=== PATIENT | female | born 1955 | race Caucasian/White ===

== ENCOUNTER 2016-09-21 07:39 | Emergency (ER) | payer OTHER ==
[~2016-09-21] VITALS: Ht 157.5 cm; Wt 62.6 kg
[~2016-09-21 07:39] MED LIST: LORA1TAB PO; MELA1TAB7 PO; RALO60TA PO
[2016-09-21] MEDS ORDERED: SODIUM CHLORIDE 0.9% 1,000 ML IV ONE (07:56)
[2016-09-21] MEDS ORDERED: SODIUM CHLORIDE 0.9% 1,000ML IVBOLUS ONE (08:00)
[2016-09-21] MEDS ORDERED: THIAMINE 100 MG in SODIUM CHLORIDE 0.9% 50 ML IVPB ONE (08:00)
[2016-09-21] MEDS ORDERED: FAMOTIDINE 20 MG/2 ML ONE (08:28)
[2016-09-21] MEDS ORDERED: ONDANSETRON 2MG/ML, 2ML ONE (08:28)
[2016-09-21] MEDS ORDERED: FAMOTIDINE 20 MG/2 ML IVP ONE (08:30)
[2016-09-21] MEDS ORDERED: ONDANSETRON 2MG/ML, 2ML IVPush ONE (08:30)
[2016-09-21 08:54] LABS: ASPARTATE AMINO TRANSFERASE 38 U/L (15-37); BLOOD UREA NITROGEN 11 mg/dL (7-18)
[2016-09-21 09:40] LABS: PATH.CAST-FLAG NOT PRESENT; SPERM-FLAG NOT PRESENT; SRC-FLAG NOT PRESENT; XTAL-FLAG NOT PRESENT; YLC-FLAG NOT PRESENT
[2016-09-21 10:44] VITALS: BP 142/78
== END 2016-09-21 10:48 | disposition home or self-care (01) ==
LOC: ED 10:42
DX: K29.20 Alcoholic gastritis without bleeding (principal); F10.129 Alcohol abuse with intoxication, unspecified; K21.9 Gastro-esophageal reflux disease without esophagitis; I10 Essential (primary) hypertension
CPT/HCPCS: 36415; 80053; 81001; 83690; 83735; 85025; 85610; 85730; 96365; 96366; 96375; 99285; J2405; J3411; J7030; S0028

== ENCOUNTER → 2016-11-09 | Outpatient (CLI) | payer OTHER ==
[~2016-11-09] MED LIST changes: +OMNIPAQUE 350 MG/ML, 100ML BOTTLE ONE
== END | disposition home or self-care (01) ==
LOC: RAD 13:14
PROVIDERS: ATTEND Specialist
DX: C54.1 Malignant neoplasm of endometrium (principal); C54.9 Malignant neoplasm of corpus uteri, unspecified; N85.8 Other specified noninflammatory disorders of uterus
CPT/HCPCS: 71260; 74177; J1642; Q9967

== ENCOUNTER 2017-08-25 07:48 | Emergency (ER) | payer OTHER ==
[~2017-08-25] VITALS: Ht 157.5 cm; Wt 63.8 kg
[~2017-08-25 07:48] MED LIST changes: -OMNIPAQUE 350 MG/ML, 100ML BOTTLE ONE
[2017-08-25] MEDS ORDERED: OXYC15TA75 PO (08:36)
[2017-08-25] MEDS ORDERED: CELE50CA PO (08:36)
[2017-08-25] MEDS ORDERED: LISI-167 PO (08:36)
[2017-08-25] MEDS ORDERED: AMLO2.5T2 PO (08:36)
[2017-08-25] MEDS ORDERED: FAMOTIDINE 20 MG/2 ML ONE (09:10)
[2017-08-25] MEDS ORDERED: SODIUM CHLORIDE FLUSH 10ML SYR IVF ONE (09:30)
[2017-08-25] MEDS ORDERED: SODIUM CHLORIDE 0.9% 1,000ML IVBOLUS ONE (09:30)
[2017-08-25] MEDS ORDERED: FAMOTIDINE 20 MG/2 ML IVP ONE (09:30)
[2017-08-25 09:33] LABS: BASOPHILS # (AUTO) 0.01 x10^3/uL (0-0.1); BASOPHILS % (AUTO) 0 % (0-1); EOSINOPHILS % (AUTO) 0 % (1-7); LYMPHOCYTES # (AUTO) 1.33 x10^3/uL (1-3.4); LYMPHOCYTES % (AUTO) 21 % (22-44); MD NO; MEAN CORPUSCULAR HEMOGLOBIN 34.1 pg (27.0-34.8); MEAN CORPUSCULAR HGB CONC 34.8 g/dL (32.4-35.8); MEAN CORPUSCULAR VOLUME 98.1 fL (80-100); MEAN PLATELET VOLUME 8.1 fL (7.4-10.4); MONOCYTES # (AUTO) 0.34 x10^3/uL (0.2-0.8); MONOCYTES % (AUTO) 5 % (2-9); NEUTROPHILS # (AUTO) 4.75 x10^3/uL (1.8-6.8); NEUTROPHILS % (AUTO) 74 % (42-75); PLATELET COUNT 184 x10^3/uL (130-400); RED BLOOD COUNT 3.98 x10^6/uL (3.82-5.3); RED CELL DISTRIBUTION WIDTH 13.2 % (9.6-15.2)
[2017-08-25 09:37] LABS: INTERNATIONAL NORMALIZED RATIO 1.07 (0.93-1.1); PROTHROMBIN TIME 11.1 Seconds (9.6-11.5)
[2017-08-25 09:46] LABS: ANION GAP 9 mmol/L (5-15); CALCIUM 8.3 mg/dL (8.5-10.1); CHLORIDE 105 mmol/L (98-107); CREATININE 0.69 mg/dL (0.55-1.02)
[2017-08-25 09:47] LABS: ALANINE AMINOTRANSFERASE 32 U/L (12-78); ALBUMIN 3.4 g/dL (3.4-5.0)
[2017-08-25 09:50] LABS: ALKALINE PHOSPHATASE 95 U/L (45-117); BILIRUBIN,TOTAL 0.5 mg/dL (0.2-1.0); TOTAL PROTEIN 7.1 g/dL (6.4-8.2)
[2017-08-25 10:38] LABS: MICROSCOPIC NOT IND
[2017-08-25 10:39] LABS: CULTURE INDICATED? NO
[2017-08-25 11:33] VITALS: BP 106/66
== END 2017-08-25 11:36 | disposition home or self-care (01) ==
LOC: ED 09:41
DX: K64.4 Residual hemorrhoidal skin tags (principal); R11.10 Vomiting, unspecified; E86.0 Dehydration; R19.09 Other intra-abdominal and pelvic swelling, mass and lump; I10 Essential (primary) hypertension; K21.9 Gastro-esophageal reflux disease without esophagitis
CPT/HCPCS: 36415; 80053; 81003; 83690; 83880; 85025; 85610; 96361; 96374; 99284; J7030; S0028

== ENCOUNTER → 2018-01-16 | Outpatient (CLI) | payer OTHER ==
[~2018-01-16] MED LIST changes: +AMLO2.5T2 PO; +CELE50CA PO; +LISI-167 PO; +OMNIPAQUE 350 MG/ML, 100ML BOTTLE ONE; +OXYC15TA75 PO
== END | disposition home or self-care (01) ==
LOC: CFH 08:46
PROVIDERS: ATTEND Specialist
DX: K57.90 Diverticulosis of intestine, part unspecified, without perforation or abscess without bleeding (principal); R19.00 Intra-abdominal and pelvic swelling, mass and lump, unspecified site; C54.8 Malignant neoplasm of overlapping sites of corpus uteri
CPT/HCPCS: 74177; Q9967

== ENCOUNTER 2019-05-02 11:00 | Inpatient (IN) | payer OTHER ==
[~2019-05-02] VITALS: Ht 157.5 cm; Wt 67.4 kg
[~2019-05-02 11:00] MED LIST changes: -OMNIPAQUE 350 MG/ML, 100ML BOTTLE ONE; +OXYC-293 PO
[2019-05-02 11:17] LABS: MICROSCOPIC NOT IND
[2019-05-02 11:20] LABS: CULTURE INDICATED? NO
[2019-05-02 11:28] LABS: BASOPHILS # (AUTO) 0.01 x10^3/uL (0-0.1); BASOPHILS % (AUTO) 0 % (0-1); EOSINOPHILS # (AUTO) 0.11 x10^3/uL (0-0.4); EOSINOPHILS % (AUTO) 2 % (1-7); LYMPHOCYTES % (AUTO) 26 % (22-44); MD NO; MEAN CORPUSCULAR HEMOGLOBIN 34.1 pg (27.0-34.8); MEAN CORPUSCULAR HGB CONC 33.4 g/dL (32.4-35.8); MEAN CORPUSCULAR VOLUME 101.8 fL (80-100); MONOCYTES # (AUTO) 0.62 x10^3/uL (0.2-0.8); MONOCYTES % (AUTO) 11 % (2-9); NEUTROPHILS # (AUTO) 3.59 x10^3/uL (1.8-6.8); NEUTROPHILS % (AUTO) 62 % (42-75); PLATELET COUNT 253 x10^3/uL (130-400); RED BLOOD COUNT 4.04 x10^6/uL (3.82-5.3); RED CELL DISTRIBUTION WIDTH 12.5 % (9.6-15.2)
[2019-05-02 11:38] LABS: PROTHROMBIN TIME 10.5 Seconds (9.6-11.5)
[2019-05-02 11:41] LABS: ALBUMIN 3.6 g/dL (3.4-5.0); ANION GAP 7 mmol/L (5-15); CALCIUM 8.8 mg/dL (8.5-10.1); CHLORIDE 106 mmol/L (98-107)
[2019-05-02 11:47] LABS: ALANINE AMINOTRANSFERASE 25 U/L (12-78); ALKALINE PHOSPHATASE 103 U/L (45-117); BILIRUBIN,TOTAL 0.5 mg/dL (0.2-1.0); CREATININE 0.92 mg/dL (0.55-1.02); TOTAL PROTEIN 7.4 g/dL (6.4-8.2)
[2019-05-05] MEDS ORDERED: CEFOTETAN PMX 2GM/50ML 50 ML IVPB ONE (11:00)
[2019-05-05] MEDS ORDERED: LACTATED RINGERS 1,000 ML IV SCH (11:08)
[2019-05-05] MEDS ORDERED: LIDOCAINE-MPF 1%, 2ML INFIL ONE (11:30)
[2019-05-05] MEDS ORDERED: MIDAZOLAM 1 MG/ML, 2ML ONE (12:24)
[2019-05-05] MEDS ORDERED: FENTANYL PF 250 MCG/5ML ONE (12:24)
[2019-05-05] MEDS ORDERED: ROCURONIUM 10MG/ML,5ML ONE (12:25)
[2019-05-05] MEDS ORDERED: DEXAMETHASONE 4 MG/ML, 1ML ONE (12:25)
[2019-05-05] MEDS ORDERED: SUCCINYLCHOLINE 20 MG/ML, 10ML ONE (12:25)
[2019-05-05] MEDS ORDERED: PROPOFOL 10 MG/ML, 20ML ONE (12:25)
[2019-05-05] MEDS ORDERED: PROMETHAZINE 12.5 MG SUPP PR PRN (13:30)
[2019-05-05] MEDS ORDERED: DIAZEPAM 5 MG/ML, 2ML IVPush PRN (13:30)
[2019-05-05] MEDS ORDERED: MIDAZOLAM 1 MG/ML, 2ML IV PRN (13:30)
[2019-05-05] MEDS ORDERED: ACETAMINOPHEN 325 MG TABLET PO PRN (13:30)
[2019-05-05] MEDS ORDERED: HALOPERIDOL 5 MG/ML IV PRN (13:30)
[2019-05-05] MEDS ORDERED: OXYcodone 5 MG/5 ML ORAL.SOL UDC PO PRN (13:30)
[2019-05-05] MEDS ORDERED: MEPERIDINE/PF 25MG/ML,1ML IVPush PRN (13:30)
[2019-05-05] MEDS ORDERED: HYDROmorphone 2 MG/ML, 1ML IVPush PRN (13:30)
[2019-05-05] MEDS ORDERED: PROMETHAZINE 25 MG/ML, 1ML IV PRN (13:30)
[2019-05-05] MEDS ORDERED: hydrALAzine 20 MG/ML, 1ML IV PRN (13:30)
[2019-05-05] MEDS ORDERED: ONDANSETRON 2MG/ML, 2ML IV PRN (13:30)
[2019-05-05] MEDS ORDERED: EPHEDRINE 50 MG/ML, 1ML IVPush PRN (13:30)
[2019-05-05] MEDS ORDERED: ONDANSETRON ODT 8 MG PO PRN (13:30)
[2019-05-05] MEDS ORDERED: ALBUTEROL SULFATE 2.5 MG/3 ML NPPB PRN (13:30)
[2019-05-05] MEDS ORDERED: LABETALOL 5MG/ML, 20ML IV PRN (13:30)
[2019-05-05] MEDS ORDERED: INDIGO CARMINE 0.8%, 5ML ONE (13:35)
[2019-05-05] MEDS ORDERED: FENTANYL PF 100 MCG/2ML ONE ×2 (13:36→15:01)
[2019-05-05] MEDS ORDERED: SUGAMMADEX 200 MG/2 ML IVPush ONE (14:13)
[2019-05-05] MEDS ORDERED: ONDANSETRON 2MG/ML, 2ML ONE ×2 (14:13)
[2019-05-05] MEDS ORDERED: KETOROLAC 30 MG/1 ML IVPush PRN (15:00)
[2019-05-05] MEDS: FENTANYL PF 100 MCG/2ML IV PRN ×2 (15:00→15:20)
[2019-05-05] MEDS ORDERED: OXYcodone 5 MG/5 ML ORAL.SOL UDC ONE (15:01)
[2019-05-05] MEDS ORDERED: KETOROLAC 30 MG/1 ML ONE (15:02)
[2019-05-05] MEDS ORDERED: HYDROmorphone 1 MG/ML, 1ML VIAL ONE (15:46)
[2019-05-05] MEDS: ONDANSETRON 2MG/ML, 2ML IVPush PRN (17:12)
[2019-05-05] MEDS: OXYcodone/APAP 5/325MG TABLET PO PRN ×2 (17:13→21:17)
[2019-05-05] MEDS: D5%-0.45NACL+KCL 20MEQ 1,000 ML IV SCH (17:13)
[2019-05-05 18:06] LABS: ANION GAP 9 mmol/L (5-15); CALCIUM 8.1 mg/dL (8.5-10.1); CHLORIDE 108 mmol/L (98-107); CREATININE 0.89 mg/dL (0.55-1.02)
[2019-05-05] MEDS: morphine SULFATE 10 MG/ML, 1ML IVPush PRN ×2 (18:53→23:54)
[2019-05-05 19:16] VITALS: BP 135/84
[2019-05-05 23:33] VITALS: BP 149/86
[2019-05-06] MEDS: OXYcodone/APAP 5/325MG TABLET PO PRN ×5 (01:22→21:00)
[2019-05-06] MEDS: ONDANSETRON 2MG/ML, 2ML IVPush PRN (01:25)
[2019-05-06] MEDS: D5%-0.45NACL+KCL 20MEQ 1,000 ML IV SCH ×3 (01:42→19:00)
[2019-05-06 03:46] VITALS: BP 116/79
[2019-05-06 04:10] LABS: BASOPHILS % (AUTO) 0 % (0-1); EOSINOPHILS # (AUTO) 0.13 x10^3/uL (0-0.4); EOSINOPHILS % (AUTO) 2 % (1-7); LYMPHOCYTES # (AUTO) 0.51 x10^3/uL (1-3.4); LYMPHOCYTES % (AUTO) 6 % (22-44); MD NO; MEAN CORPUSCULAR HEMOGLOBIN 34.2 pg (27.0-34.8); MEAN CORPUSCULAR HGB CONC 33.6 g/dL (32.4-35.8); MEAN CORPUSCULAR VOLUME 101.9 fL (80-100); MEAN PLATELET VOLUME 8.5 fL (7.4-10.4); MONOCYTES # (AUTO) 0.92 x10^3/uL (0.2-0.8); MONOCYTES % (AUTO) 10 % (2-9); NEUTROPHILS % (AUTO) 83 % (42-75); PLATELET COUNT 242 x10^3/uL (130-400); RED BLOOD COUNT 3.44 x10^6/uL (3.82-5.3); RED CELL DISTRIBUTION WIDTH 12.7 % (9.6-15.2)
[2019-05-06 06:55] VITALS: BP 125/72
[2019-05-06] MEDS: morphine SULFATE 10 MG/ML, 1ML IVPush PRN (08:55)
[2019-05-06 12:51] VITALS: BP 124/75
[2019-05-06] MEDS: OMEPRAZOLE 20 MG CAPSULE.DR PO SCH (16:31)
[2019-05-06 19:12] VITALS: BP 122/74
[2019-05-06] MEDS: LORazepam 1MG TABLET PO SCH (22:30)
[2019-05-07 01:58] VITALS: BP 124/76
[2019-05-07] MEDS: D5%-0.45NACL+KCL 20MEQ 1,000 ML IV SCH ×3 (03:00→19:00)
[2019-05-07] MEDS: OXYcodone/APAP 5/325MG TABLET PO PRN ×3 (03:04→12:23)
[2019-05-07] MEDS: OMEPRAZOLE 20 MG CAPSULE.DR PO SCH ×2 (06:14→16:10)
[2019-05-07 07:11] VITALS: BP 110/70
[2019-05-07] MEDS: ONDANSETRON 2MG/ML, 2ML IVPush PRN (13:17)
[2019-05-07 14:00] VITALS: BP 124/66
[2019-05-07] MEDS: morphine SULFATE 10 MG/ML, 1ML IVPush PRN (19:19)
[2019-05-07 19:24] VITALS: BP 137/84
[2019-05-07] MEDS: LORazepam 1MG TABLET PO SCH (21:00)
[2019-05-08 01:05] VITALS: BP 157/79
[2019-05-08] MEDS: morphine SULFATE 10 MG/ML, 1ML IVPush PRN ×2 (01:12→14:15)
[2019-05-08] MEDS: D5%-0.45NACL+KCL 20MEQ 1,000 ML IV SCH ×4 (02:42→21:17)
[2019-05-08] MEDS: OMEPRAZOLE 20 MG CAPSULE.DR PO SCH ×2 (05:28→17:00)
[2019-05-08] MEDS: OXYcodone/APAP 5/325MG TABLET PO PRN ×3 (06:27→18:30)
[2019-05-08 06:49] VITALS: BP 135/81
[2019-05-08 10:42] LABS: MEAN CORPUSCULAR HEMOGLOBIN 34.6 pg (27.0-34.8); MEAN CORPUSCULAR HGB CONC 33.9 g/dL (32.4-35.8); MEAN CORPUSCULAR VOLUME 102.2 fL (80-100); MEAN PLATELET VOLUME 8.4 fL (7.4-10.4); PLATELET COUNT 232 x10^3/uL (130-400); RED BLOOD COUNT 3.04 x10^6/uL (3.82-5.3); RED CELL DISTRIBUTION WIDTH 12.4 % (9.6-15.2)
[2019-05-08 10:51] LABS: ANION GAP 6 mmol/L (5-15); CALCIUM 8.4 mg/dL (8.5-10.1); CHLORIDE 103 mmol/L (98-107)
[2019-05-08 10:52] LABS: CREATININE 0.57 mg/dL (0.55-1.02)
[2019-05-08 10:58] LABS: BASOPHILS # (AUTO) 0.01 x10^3/uL (0-0.1); BASOPHILS % (AUTO) 0 % (0-1); EOSINOPHILS # (AUTO) 0.02 x10^3/uL (0-0.4); EOSINOPHILS % (AUTO) 0 % (1-7); LYMPHOCYTES # (AUTO) 0.88 x10^3/uL (1-3.4); LYMPHOCYTES % (AUTO) 6 % (22-44); MD SCAN; MONOCYTES # (AUTO) 0.85 x10^3/uL (0.2-0.8); MONOCYTES % (AUTO) 6 % (2-9); NEUTROPHILS # (AUTO) 12.93 x10^3/uL (1.8-6.8); NEUTROPHILS % (AUTO) 88 % (42-75)
[2019-05-08 13:33] VITALS: BP 115/76
[2019-05-08 18:51] VITALS: BP 137/82
[2019-05-08] MEDS ORDERED: METOCLOPRAMIDE 10MG TABLET PO PRN (21:00)
[2019-05-08] MEDS: LORazepam 1MG TABLET PO SCH (21:17)
[2019-05-08] MEDS: METOCLOPRAMIDE 10MG TABLET PO SCH (21:17)
[2019-05-08 23:52] LABS: MICROSCOPIC AUTO
[2019-05-08 23:53] LABS: CULTURE INDICATED? YES
[2019-05-09 01:05] VITALS: BP 142/87
[2019-05-09] MEDS: METOCLOPRAMIDE 10MG TABLET PO SCH ×3 (02:16→14:35)
[2019-05-09] MEDS: OMEPRAZOLE 20 MG CAPSULE.DR PO SCH (04:25)
[2019-05-09] MEDS: OXYcodone/APAP 5/325MG TABLET PO PRN ×4 (04:25→15:28)
[2019-05-09 05:06] LABS: MEAN CORPUSCULAR HEMOGLOBIN 33.9 pg (27.0-34.8); MEAN CORPUSCULAR HGB CONC 33.7 g/dL (32.4-35.8); MEAN CORPUSCULAR VOLUME 100.6 fL (80-100); PLATELET COUNT 274 x10^3/uL (130-400); RED BLOOD COUNT 3.07 x10^6/uL (3.82-5.3); RED CELL DISTRIBUTION WIDTH 12.4 % (9.6-15.2)
[2019-05-09 05:13] LABS: ANION GAP 9 mmol/L (5-15); CALCIUM 8.5 mg/dL (8.5-10.1); CHLORIDE 101 mmol/L (98-107); CREATININE 0.53 mg/dL (0.55-1.02)
[2019-05-09 05:55] LABS: BASOPHILS % (AUTO) 0 % (0-1); EOSINOPHILS # (AUTO) 0.06 x10^3/uL (0-0.4); EOSINOPHILS % (AUTO) 1 % (1-7); LYMPHOCYTES # (AUTO) 0.71 x10^3/uL (1-3.4); LYMPHOCYTES % (AUTO) 6 % (22-44); MD SCAN; MONOCYTES # (AUTO) 0.82 x10^3/uL (0.2-0.8); MONOCYTES % (AUTO) 7 % (2-9); NEUTROPHILS # (AUTO) 11.05 x10^3/uL (1.8-6.8); NEUTROPHILS % (AUTO) 87 % (42-75)
[2019-05-09 07:16] VITALS: BP 143/82
[2019-05-09] MEDS ORDERED: CIPROFLOXACIN 500 MG TABLET PO SCH (09:00)
[2019-05-09] MEDS ORDERED: CALCIUM CARBONATE 500 MG TAB.CHEW ONE (10:13)
[2019-05-09] MEDS ORDERED: CALCIUM CARBONATE 500 MG TAB.CHEW PO SCH (11:00)
[2019-05-09 12:35] VITALS: BP 121/72
[2019-05-09] MEDS ORDERED: ONDA4TAB7 PO (15:19)
[2019-05-09] MEDS ORDERED: CIPR500T87 PO (15:21)
[2019-05-09] MEDS ORDERED: D5%-0.45NACL+KCL 20MEQ 1,000 ML IV SCH (16:30)
== END 2019-05-09 16:08 | disposition home or self-care (01) | DRG 336 ==
LOC: EDSTATUS 05-05 09:45 → ORIP 05-05 10:03 → 4NE 05-05 16:15 → 4NW 05-07 16:41 → DCLOUNGE 05-09 15:44
PROVIDERS: ADMIT Specialist; ATTEND Specialist
PROC: 04B Lower Arteries, Excision (ICD-10-PCS; 2019-05-05)
PROC: 0TQD8ZZ Repair Urethra, Via Natural or Artificial Opening Endoscopic (ICD-10-PCS; 2019-05-05)
PROC: 0T778DZ Dilation of Left Ureter with Intraluminal Device, Via Natural or Artificial Opening Endoscopic (ICD-10-PCS; 2019-05-05)
PROC: 0DNW0ZZ Release Peritoneum, Open Approach (ICD-10-PCS; principal; 2019-05-05 10:45)
DX: R19.00 Intra-abdominal and pelvic swelling, mass and lump, unspecified site (principal); C49.9 Malignant neoplasm of connective and soft tissue, unspecified; N39.0 Urinary tract infection, site not specified; K56.7 Ileus, unspecified; C78.7 Secondary malignant neoplasm of liver and intrahepatic bile duct; S37.19XA Other injury of ureter, initial encounter; F41.9 Anxiety disorder, unspecified; K66.0 Peritoneal adhesions (postprocedural) (postinfection); D64.9 Anemia, unspecified; X58.XXXA Exposure to other specified factors, initial encounter; Y93.89 Activity, other specified; Y92.89 Other specified places as the place of occurrence of the external cause; Y99.8 Other external cause status; Z79.899 Other long term (current) drug therapy; Z88.6 Allergy status to analgesic agent
CPT/HCPCS: 36415; 74018; J3490; 71046; 80048; 80053; 81001; 81003; 82378; 85025; 85610; 85730; 86304; 86850; 86900; 86923; 87086; 88305; 88307; 88341; 88342; 93005; C1729; G0378; J1100; J1170; J1885; J2250; J2405; J2704; J3010; C1765; C1769; C2617; J0330; J2270; J3480; J7120

== ENCOUNTER 2019-06-17 07:29 | Day surgery (SDC) | payer OTHER ==
[~2019-06-17] VITALS: Ht 157.5 cm; Wt 65.3 kg
[~2019-06-17 07:29] MED LIST changes: +CIPR500T87 PO; +ONDA4TAB7 PO
[2019-06-17] MEDS ORDERED: ACETAMINOPHEN 500 MG TABLET PO ONE (08:00)
[2019-06-17] MEDS ORDERED: GLUC500T11 PO (08:18)
[2019-06-17] MEDS ORDERED: VENL37.57 PO (08:18)
[2019-06-17] MEDS ORDERED: VITA200C33 PO (08:18)
[2019-06-17 08:23] VITALS: BP 136/84
[2019-06-17] MEDS ORDERED: LACTATED RINGERS 1,000 ML IV SCH (09:00)
[2019-06-17] MEDS ORDERED: CEFOTETAN PMX 2GM/50ML 50 ML IV ONE (09:00)
[2019-06-17] MEDS ORDERED: MEPERIDINE/PF 25MG/ML,1ML IVPush PRN (09:30)
[2019-06-17] MEDS ORDERED: OXYcodone 5 MG/5 ML ORAL.SOL UDC PO PRN (09:30)
[2019-06-17] MEDS ORDERED: LABETALOL 5MG/ML, 20ML IV PRN (09:30)
[2019-06-17] MEDS ORDERED: HYDROmorphone 2 MG/ML, 1ML IVPush PRN (09:30)
[2019-06-17] MEDS ORDERED: hydrALAzine 20 MG/ML, 1ML IV PRN (09:30)
[2019-06-17] MEDS ORDERED: EPHEDRINE 50 MG/ML, 1ML IVPush PRN (09:30)
[2019-06-17] MEDS ORDERED: PROMETHAZINE 25 MG/ML, 1ML IV PRN (09:30)
[2019-06-17] MEDS ORDERED: ONDANSETRON 2MG/ML, 2ML IV PRN (09:30)
[2019-06-17] MEDS ORDERED: FENTANYL PF 100 MCG/2ML IV PRN (09:30)
[2019-06-17] MEDS ORDERED: FENTANYL PF 100 MCG/2ML ONE (11:02)
[2019-06-17] MEDS ORDERED: MIDAZOLAM 1 MG/ML, 2ML ONE (11:02)
[2019-06-17] MEDS ORDERED: ONDANSETRON 2MG/ML, 2ML ONE (15:49)
[2019-06-17] MEDS ORDERED: DEXAMETHASONE 4 MG/ML, 1ML ONE (15:49)
[2019-06-17] MEDS ORDERED: CEFOTETAN 2 GM ONE (15:49)
[2019-06-17] MEDS ORDERED: PROPOFOL 10 MG/ML, 20ML ONE (15:49)
== END 2019-06-17 14:55 | disposition home or self-care (01) ==
LOC: OUT 07:29
PROVIDERS: ATTEND Specialist
DX: Z46.6 Encounter for fitting and adjustment of urinary device (principal); C54.1 Malignant neoplasm of endometrium; C56.9 Malignant neoplasm of unspecified ovary; C54.9 Malignant neoplasm of corpus uteri, unspecified; C49.9 Malignant neoplasm of connective and soft tissue, unspecified; F10.10 Alcohol abuse, uncomplicated; K80.00 Calculus of gallbladder with acute cholecystitis without obstruction; C78.7 Secondary malignant neoplasm of liver and intrahepatic bile duct; Z87.891 Personal history of nicotine dependence; Z88.8 Allergy status to other drugs, medicaments and biological substances
CPT/HCPCS: 52310; 74420; 88307; 88341; 88342; 88360; J1100; J2250; J2405; J2704; J3010; J3490; J7120